=== PATIENT | male | born 1940 | race Caucasian/White ===

== ENCOUNTER 2020-04-02 07:46 | Outpatient (CLI) | payer MEDICARE, BC ==
[~2020-04-02 07:46] MED LIST: MULT-412 PO; OM-31CAP4 PO; ONDA4TAB7 PO; OXYC5TAB3 PO; REGADENOSON 0.4 MG/5 ML SYRINGE ONE
== END 2020-04-02 23:59 | disposition home or self-care (01) ==
LOC: CFH 07:46
PROVIDERS: ATTEND Nurse Practitioner Family
DX: I25.89 Other forms of chronic ischemic heart disease (principal)
CPT/HCPCS: 78452; 93017; A9502; J2785